=== PATIENT | male | born 1945 | race Caucasian/White ===

== ENCOUNTER 2021-09-27 12:43 | Emergency (ER) | payer MEDICARE, BC ==
--- NOTE | 2021-09-27 13:19 | EDM.PDOC ---
ED HPI GENERAL MEDICAL PROBLEM - General Chief Complaint: General Stated Complaint: MEDICAL [facility] Time Seen by Provider: 09/27/21 13:05 Source of Information: Reports: Patient, EMS, RN Notes Reviewed History Limitations: Reports: No Limitations - History of Present Illness INITIAL COMMENTS - FREE TEXT/NARRATIVE: 75-year-old gentleman presents emergency department today via EMS services complaint of dizziness, he states been dizzy for a couple weeks although it has gotten worse over the last couple of days. He has had dizziness in the past but it usually resolves within a day or 2. While in route EMS services did check a blood sugar it was at 291. He states he has never had issues with blood sugar in the past. No shortness of breath no nausea vomiting no diabetic history he consumes 4 5 glasses of water per day with 3-4 soda pops per day he does admit to consuming a lot of sugar Left Knee Pain Score (Numeric/FACES): 2 - Related Data Home Meds: Home Meds metFORMIN [Glucophage] 500 mg PO BIDMEALS #60 tab 09/27/21 [Rx] Past Medical History Cardiovascular History: Reports: High Cholesterol, Hypertension Social & Family History - Tobacco Use Tobacco Use Status *Q: Current Some Day Tobacco User Years of Tobacco use: 50 Packs/Tins Daily: 0 ED ROS GENERAL - Review of Systems Review Of Systems: See Below Constitutional: Reports: No Symptoms HEENT: Reports: No Symptoms Respiratory: Reports: No Symptoms Cardiovascular: Reports: Lightheadedness GI/Abdominal: Reports: No Symptoms : Reports: No Symptoms Neurological: Reports: Dizziness ED EXAM, GENERAL - Physical Exam Exam: See Below Exam Limited By: No Limitations General Appearance: Alert, WD/WN, No Apparent Distress Respiratory/Chest: No Respiratory Distress, Lungs Clear, Normal Breath Sounds, No Accessory Muscle Use, Chest Non-Tender Cardiovascular: Regular Rate, Rhythm, No Murmur GI/Abdominal: Soft, Non-Tender Extremities: No Pedal Edema Course - Vital Signs Last Recorded V/S: Last Vital Signs Temp 97.6 F 09/27/21 13:12 Pulse 84 09/27/21 14:05 Resp 13 09/27/21 14:05 BP 131/77 09/27/21 14:05 Pulse Ox 93 L 09/27/21 13:16 - Orders/Labs/Meds Labs: Laboratory Tests 09/27/21 09/27/21 09/27/21 Range/Units 13:25 13:25 13:25 WBC 9.7 (4.5-11.0) K/uL RBC 5.20 (4.30-5.90) M/uL Hgb 15.5 H (12.0-15.0) g/dL Hct 44.3 (40.0-54.0) % MCV 85 (80-98) fL MCH 30 (27-31) pg MCHC 35 (32-36) % Plt Count 266 (150-400) K/uL Neut % (Auto) 71.5 H (36-66) % Lymph % (Auto) 17.1 L (24-44) % Morris % (Auto) 10.2 H (2-6) % Eos % (Auto) 0.7 L (2-4) % Baso % (Auto) 0.5 (0-1) % Sodium 138 L (140-148) mmol/L Potassium 3.8 (3.6-5.2) mmol/L Chloride 101 (100-108) mmol/L Carbon Dioxide 28 (21-32) mmol/L Anion Gap 12.8 (5.0-14.0) mmol/L BUN 14 (7-18) mg/dL Creatinine 1.0 (0.8-1.3) mg/dL Est Cr Clr Drug Dosing 56.71 mL/min Estimated GFR (MDRD) > 60 (>60) Glucose 261 H (74-106) mg/dL Hemoglobin A1c 10.0 H (4.5-6.2) % Calcium 9.3 (8.5-10.1) mg/dL Total Bilirubin 0.7 (0.2-1.0) mg/dL AST 34 (15-37) U/L ALT 50 (12-78) U/L Alkaline Phosphatase 105 (46-116) U/L Total Protein 6.3 L (6.4-8.2) g/dL Albumin 3.1 L (3.4-5.0) g/dL Globulin 3.2 (2.3-3.5) g/dL Albumin/Globulin Ratio 1.0 L (1.2-2.2) Urine Color (YELLOW) Urine Appearance (CLEAR) Urine pH (5.0-8.0) Ur Specific [place] (1.008-1.030) Urine Protein (NEGATIVE) mg/dL Urine Glucose (UA) (NEGATIVE) mg/dL Urine Ketones (NEGATIVE) mg/dL Urine Occult Blood (NEGATIVE) Urine Nitrite (NEGATIVE) Urine Bilirubin (NEGATIVE) Urine Urobilinogen (0.2-1.0) EU/dL Ur Leukocyte Esterase (NEGATIVE) Urine RBC (0-5) Urine WBC (0-5) Ur Epithelial Cells Amorphous Sediment Urine Bacteria Urine Mucus 09/27/21 Range/Units 13:26 WBC (4.5-11.0) K/uL RBC (4.30-5.90) M/uL Hgb (12.0-15.0) g/dL Hct (40.0-54.0) % MCV (80-98) fL MCH (27-31) pg MCHC (32-36) % Plt Count (150-400) K/uL Neut % (Auto) (36-66) % Lymph % (Auto) (24-44) % Morris % (Auto) (2-6) % Eos % (Auto) (2-4) % Baso % (Auto) (0-1) % Sodium (140-148) mmol/L Potassium (3.6-5.2) mmol/L Chloride (100-108) mmol/L Carbon Dioxide (21-32) mmol/L Anion Gap (5.0-14.0) mmol/L BUN (7-18) mg/dL Creatinine (0.8-1.3) mg/dL Est Cr Clr Drug Dosing mL/min Estimated GFR (MDRD) (>60) Glucose (74-106) mg/dL Hemoglobin A1c (4.5-6.2) % Calcium (8.5-10.1) mg/dL Total Bilirubin (0.2-1.0) mg/dL AST (15-37) U/L ALT (12-78) U/L Alkaline Phosphatase (46-116) U/L Total Protein (6.4-8.2) g/dL Albumin (3.4-5.0) g/dL Globulin (2.3-3.5) g/dL Albumin/Globulin Ratio (1.2-2.2) Urine Color Yellow (YELLOW) Urine Appearance Clear (CLEAR) Urine pH 5.5 (5.0-8.0) Ur Specific [place] 1.025 (1.008-1.030) Urine Protein Negative (NEGATIVE) mg/dL Urine Glucose (UA) 500 H (NEGATIVE) mg/dL Urine Ketones Negative (NEGATIVE) mg/dL Urine Occult Blood Negative (NEGATIVE) Urine Nitrite Negative (NEGATIVE) Urine Bilirubin Negative (NEGATIVE) Urine Urobilinogen 0.2 (0.2-1.0) EU/dL Ur Leukocyte Esterase Negative (NEGATIVE) Urine RBC 0-5 (0-5) Urine WBC 0-5 (0-5) Ur Epithelial Cells Not seen Amorphous Sediment Not seen Urine Bacteria Few Urine Mucus Not seen Meds: Medications Discontinued Medications Generic Name Dose Route Start Last Admin Trade Name Freq PRN Reason Stop Dose Admin Metformin HCl 500 mg 09/27/21 14:23 Metformin 500 Mg Tab PO 09/27/21 14:24 ONETIME ONE Departure - Departure Time of Disposition: 14:27 Disposition: Home, Self-Care 01 Condition: Fair Clinical Impression: Diabetes mellitus type 2 in obese - Discharge Information Prescriptions: metFORMIN [Glucophage] 500 mg PO BIDMEALS #60 tab Instructions: Type 2 Diabetes Mellitus, Diagnosis, Adult, [id number] Referrals: PCP,None [Primary Care Provider] - Forms: ED Department Discharge Additional Instructions: Start your Metformin 1 tablet twice a day please follow-up with your primary care in the next 3 to 5 days for reevaluation, call return to the emergency de partment worsening of symptoms Sepsis Event Note (ED) - Evaluation Sepsis Screening Result: No Definite Risk - Focused Exam Vital Signs: Vital Signs Temp Pulse Resp BP Pulse Ox 09/27/21 14:05 84 13 131/77 09/27/21 13:16 87 15 150/82 H 93 L 09/27/21 13:12 97.6 F 88 18 152/89 H 95 - Assessment/Plan Plan: Assessment Acuity = acute Site and laterality = diabetes mellitus type 2 Etiology = unknown Manifestations = dizziness prior related to elevated blood sugars Location of injury = Home Lab values = CBC unremarkable, blood sugar 261 consistent with hyperglycemia hemoglobin A1c at 10.0, urinalysis 500 of glucose consistent with glucosuria Plan I did review lab work with him started Metformin in the emergency department prescription written for Metformin 500 mg 1 tab p.o. twice daily total #16 he is to follow-up with his primary care in the next 3 to 5 days for reevaluation medications faxed to [email or web address] [email or web address] This note was dictated using [employer] voice recognition software please call with any questions on syntax or grammar.
[2021-09-27] MEDS ORDERED: metFORMIN 500 MG Tab PO ONE (14:23)
== END 2021-09-27 15:59 | disposition home or self-care (01) ==
LOC: JP.ED 12:43
DX: E11.9 Type 2 diabetes mellitus without complications (principal); F17.210 Nicotine dependence, cigarettes, uncomplicated
CPT/HCPCS: 36415; 80053; 81001; 83036; 85025; 99284; A9270

== ENCOUNTER 2024-04-25 13:10 | Inpatient (IN) | payer MEDICARE, BC ==
[2024-04-25] MEDS ORDERED: Ondansetron 4 MG/2 ML SDV IV PRN (13:15)
[2024-04-25] MEDS ORDERED: Magnesium Hydroxide 400 MG/5 ML Susp 30 ML Cup PO PRN (13:15)
[2024-04-25] MEDS ORDERED: LORazepam 2 MG/ML SDV IVPUSH PRN (13:15)
[2024-04-25] MEDS ORDERED: Sennosides/Docusate Sodium 50-8.6 MG Tab PO PRN (13:15)
[2024-04-25] MEDS ORDERED: 50% Dextrose in Water 50 ML Syringe IVPUSH PRN (15:17)
[2024-04-25] MEDS ORDERED: Glucagon,Human Recombinant 1 MG Vial IM PRN (15:17)
[2024-04-25] MEDS ORDERED: Venlafaxine 75 MG Cap.ER PO SCH (16:30)
[2024-04-25] MEDS: Insulin Lispro 100 Unit/ML 3 ML KwikPen SUBCUT SCH (19:05)
[2024-04-25] MEDS: predniSONE 5 MG Tab PO SCH (19:06)
[2024-04-25] MEDS: Acetaminophen 325 MG Tab PO SCH (20:23)
[2024-04-25] MEDS: Melatonin 3 MG Tab PO SCH (20:23)
[2024-04-25] MEDS: atorvaSTATin 20 MG Tab PO SCH (20:23)
[2024-04-25] MEDS ORDERED: Non-Formulary Medication 1 Each (Atorvastatin [Lipitor] 40 MG Tablet) PO SCH (21:00)
[2024-04-26 05:15] LABS: HEMOGLOBIN 8.2 g/dL (12.9-16.9); MEAN CORPUSCULAR HEMOGLOBIN 30.9 pg (31.6-35.5); MEAN CORPUSCULAR HGB CONC 34.2 g/dL (31.6-35.5); MEAN CORPUSCULAR VOLUME 90.6 fL (81.4-99.0); RED BLOOD CELL COUNT 2.65 M/uL (4.14-5.76); WHITE BLOOD CELL COUNT,WBC 4.6 K/uL (3.2-11.0)
[2024-04-26 05:33] LABS: A/G RATIO 0.9 (1.2-2.2); ALANINE AMINOTRANSFERASE,ALT 14 U/L (12-78); ALBUMIN 2.6 g/dL (3.4-5.0); ALKALINE PHOSPHATASE 109 U/L (46-116); ASPARTATE AMNIOTRANSFERASE,AST 77 U/L (15-37); BILIRUBIN TOTAL 0.7 mg/dL (0.2-1.0); BLOOD UREA NITROGEN,BUN 14 mg/dL (7-18); CARBON DIOXIDE,CO2 27 mmol/L (21-32); CHLORIDE,CL 101 mmol/L (100-108); CREATININE 0.9 mg/dL (0.8-1.3); ESTIMATED GFR 87 mL/min (>60); GLUCOSE RANDOM 137 mg/dL (74-106); PROTEIN TOTAL,TP 5.5 g/dL (6.4-8.2); SODIUM,NA 138 mmol/L (140-148)
[2024-04-26 07:14] LABS: HEMOGLOBIN A1C 5.9 % (4.5-6.2)
[2024-04-26] MEDS: Pantoprazole 40 MG Tab.CR PO SCH (08:26)
[2024-04-26] MEDS: Aspirin 81 MG Tab.Chew PO SCH (08:27)
[2024-04-26] MEDS: Polyethylene Glycol 3350 Powder 17 GM Packet PO SCH (08:28)
[2024-04-26] MEDS: Venlafaxine 75 MG Cap.ER PO SCH (08:28)
[2024-04-26] MEDS: amLODIPine 5 MG Tab PO SCH (08:29)
[2024-04-26] MEDS: Sennosides 8.6 MG Tab PO SCH (08:30)
[2024-04-26] MEDS: Cholecalciferol (Vitamin D3) 25 MCG Tab PO SCH (08:32)
[2024-04-26] MEDS: ABIRATERONE ACETATE 250 MG PO SCH (08:41)
[2024-04-26] MEDS ORDERED: AMLODIPINE BESYLATE 2.5 MG PO SCH (09:00)
[2024-04-26] MEDS ORDERED: Non-Formulary Medication 1 Each (Cholecalciferol (Vitamin D3) [Vitamin D3] 125 MCG Capsule PO SCH (09:00)
[2024-04-26] MEDS ORDERED: Non-Formulary Medication 1 Each (Sennosides [Senokot] 8.6 MG Tablet) PO SCH (09:00)
[2024-04-26] MEDS ORDERED: Non-Formulary Medication 1 Each (Venlafaxine [Effexor Xr] 150 MG Cap.Er) PO SCH (09:00)
[2024-04-28] MEDS: oxyCODONE 5 MG Tab PO PRN (09:56)
[2024-04-28] MEDS: oxyCODONE 5 MG Tab PO SCH (16:14)
[2024-04-29] MEDS: Diclofenac Sodium 1% Gel 100 GM Tube TOP SCH (16:33)
[2024-05-01] MEDS: Acetaminophen 325 MG Tab PO PRN (05:58)
[2024-05-05] MEDS: Ondansetron 4 MG Tab.DIS PO PRN (08:08)
[2024-05-05] MEDS ORDERED: oxyCODONE 5 MG Tab PO PRN (11:43)
[2024-05-05 12:23] LABS: HEMATOCRIT 23.2 % (38.4-49.7); HEMOGLOBIN 8.1 g/dL (12.9-16.9); MEAN CORPUSCULAR HGB CONC 34.9 g/dL (31.6-35.5); MEAN CORPUSCULAR VOLUME 91.7 fL (81.4-99.0); PLATELET COUNT,PLT 69 K/uL (130-375); RED BLOOD CELL COUNT 2.53 M/uL (4.14-5.76); WHITE BLOOD CELL COUNT,WBC 4.9 K/uL (3.2-11.0)
[2024-05-05 12:49] LABS: C-REACTIVE PROTEIN 4.91 mg/dL (<0.50); EST CRCL DRUG DOSING (CG) 50.49 mL/min; POTASSIUM,K 4.3 mmol/L (3.6-5.2)
[2024-05-05 12:50] LABS: ANION GAP 14.3 mmol/L (5.0-14.0)
[2024-05-05 13:05] LABS: BAND PERCENT MAN 2 % (5-11); EOSINOPHILS ABSOLUTE MAN 0.05 K/uL (0.00-0.40); EOSINOPHILS PERCENT MAN 1 % (2-4); LYMPHOCYTES ABSOLUTE MAN 1.18 K/uL (0.8-3.3); LYMPHOCYTES PERCENT MAN 24 % (24-44); MONOCYTES ABSOLUTE MAN 0.25 K/uL (0.20-0.90); MONOCYTES PERCENT MAN 5 % (2-6); NEUTROPHILS ABSOLUTE MAN 3.33 K/uL (1.0-7.6); SEG NEUTROPHILS PERCENT MAN 68 % (36-66)
[2024-05-05 15:51] LABS: APPEARANCE,URINE TURBID (CLEAR); BILIRUBIN,URINE NEGATIVE (NEGATIVE); COLOR,URINE YELLOW (YELLOW); GLUCOSE,URINE NEGATIVE (NEGATIVE); KETONES,URINE NEGATIVE (NEGATIVE); LEUKOCYTE ESTERASE,URINE NEGATIVE (NEGATIVE); NITRITE,URINE NEGATIVE (NEGATIVE); OCCULT BLOOD,URINE NEGATIVE (NEGATIVE); PH,URINE 5.5 (5.0-8.0); PROTEIN,URINE NEGATIVE (NEGATIVE)
[2024-05-05 15:58] LABS: RBC,URINE 0-5 (0-5)
[2024-05-05 16:01] LABS: AMORPHOUS SEDIMENT,URINE NOT SEEN; BACTERIA,URINE MANY; EPITHELIAL CELLS,URINE NOT SEEN; MUCUS,URINE NOT SEEN; WBC,URINE 0-5 (0-5)
[2024-05-05] MEDS: cefTRIAXone 2 GM in Sodium Chloride 0.9% 50 ML IV SCH (19:25)
== END 2024-05-06 10:46 | disposition home or self-care (01) | DRG 948 ==
LOC: JP.MS 13:10 → UNDOADMIN 13:10
PROVIDERS: ADMIT Hospitalist; ATTEND Internal Medicine
DX: R53.1 Weakness (principal); I10 Essential (primary) hypertension; F32.A Depression, unspecified; Z66 Do not resuscitate; E86.0 Dehydration; E78.00 Pure hypercholesterolemia, unspecified; K21.9 Gastro-esophageal reflux disease without esophagitis; R62.7 Adult failure to thrive; R41.0 Disorientation, unspecified; R53.81 Other malaise; Z85.46 Personal history of malignant neoplasm of prostate; Z86.73 Personal history of transient ischemic attack (TIA), and cerebral infarction without residual deficits; Z79.84 Long term (current) use of oral hypoglycemic drugs; Z79.82 Long term (current) use of aspirin; Z79.899 Other long term (current) drug therapy; Z87.891 Personal history of nicotine dependence
CPT/HCPCS: 36415; 80048; 80053; 81001; 83036; 84145; 85025; 85027; 86140; 87086; 97110-GP; 97116-GP; 97161-GP; 97166-GO; 97530-GO; 97530-GP; 97535-GO; 99305; 99308; 99315; A9270-GY; J0696; J3490; J7512; Q0162

== ENCOUNTER 2024-05-06 10:49 | Inpatient (IN) | payer MEDICARE, BC ==
[2024-05-06] MEDS ORDERED: Magnesium Hydroxide 400 MG/5 ML Susp 30 ML Cup PO PRN (11:17)
[2024-05-06] MEDS ORDERED: Albuterol 0.083% 2.5 MG/3 ML Neb Soln NEB PRN (11:17)
[2024-05-06] MEDS ORDERED: Sennosides/Docusate Sodium 50-8.6 MG Tab PO PRN (11:17)
[2024-05-06] MEDS ORDERED: Ondansetron 4 MG/2 ML SDV IV PRN (11:17)
[2024-05-06] MEDS ORDERED: Ondansetron 4 MG Tab.DIS PO PRN (11:17)
[2024-05-06] MEDS: Sodium Chloride 0.9% 500 ML IV ONE (12:18)
[2024-05-06] MEDS: Sodium Chloride 0.9% 1,000 ML IV SCH (12:57)
[2024-05-06] MEDS: cefTRIAXone 2 GM in Sodium Chloride 0.9% 50 ML IV SCH (14:55)
[2024-05-06] MEDS: Ketorolac 30 MG/ML SDV IVPUSH ONE (15:38)
[2024-05-06] MEDS: Dextrose 5%-Lactated Ringers 1,000 ML IV ONE (19:56)
[2024-05-06 20:19] LABS: MEAN CORPUSCULAR HEMOGLOBIN 31.6 pg (31.6-35.5); PLATELET COUNT,PLT 51 K/uL (130-375); RED BLOOD CELL COUNT 2.15 M/uL (4.14-5.76); WHITE BLOOD CELL COUNT,WBC 3.9 K/uL (3.2-11.0)
[2024-05-06 20:25] LABS: HEMOGLOBIN 6.8 g/dL (12.9-16.9)
[2024-05-06 20:28] LABS: BASE EXCESS ARTERIAL 4.6 mm/L; BICARBONATE,ARTERIAL 28.2 mmol/L (22.0-26.0); CARBOXYHEMOGLOBIN 4.2 % (0.0-1.6); METHEMOGLOBIN 0.9 %; OXYHEMOGLOBIN 94.8 %; PCO2 ARTERIAL 38.7 mmHg (35.0-42.0); TOTAL HEMOGLOBIN 7.1 g/dL (13.5-18.0)
[2024-05-06 20:32] LABS: O2 SATURATION ARTERIAL > 99.3 % (95.0-98.0)
[2024-05-06 20:45] LABS: ALANINE AMINOTRANSFERASE,ALT 5 U/L (12-78); ALBUMIN 2.6 g/dL (3.4-5.0); ALKALINE PHOSPHATASE 113 U/L (46-116); ANION GAP 8.5 mmol/L (5.0-14.0); ASPARTATE AMNIOTRANSFERASE,AST 90 U/L (15-37); BILIRUBIN TOTAL 0.6 mg/dL (0.2-1.0); BLOOD UREA NITROGEN,BUN 16 mg/dL (7-18); CARBON DIOXIDE,CO2 29 mmol/L (21-32); CHLORIDE,CL 104 mmol/L (100-108); CREATININE 0.8 mg/dL (0.8-1.3); EST CRCL DRUG DOSING (CG) 63.12 mL/min; ESTIMATED GFR 90 mL/min (>60); GLUCOSE RANDOM 117 mg/dL (74-106); POTASSIUM,K 3.9 mmol/L (3.6-5.2); PROTEIN TOTAL,TP 5.1 g/dL (6.4-8.2); SODIUM,NA 141 mmol/L (140-148)
[2024-05-06 20:47] LABS: BAND ABSOLUTE MAN 0.39 K/uL; BAND PERCENT MAN 10 % (5-11); HYPOCHROMASIA MODERATE; LYMPHOCYTES ABSOLUTE MAN 0.78 K/uL (0.8-3.3); LYMPHOCYTES PERCENT MAN 20 % (24-44); MONOCYTES ABSOLUTE MAN 0.35 K/uL (0.20-0.90); MONOCYTES PERCENT MAN 9 % (2-6); NEUTROPHILS ABSOLUTE MAN 2.38 K/uL (1.0-7.6); SEG NEUTROPHILS PERCENT MAN 61 % (36-66)
[2024-05-06 20:48] LABS: ANISOCYTOSIS FEW; POIKILOCYTOSIS FEW
[2024-05-06 20:55] LABS: MAGNESIUM 2.2 mg/dL (1.8-2.4); TSH ULTRASENSITIVE 1.386 uIU/mL (0.358-3.740)
[2024-05-06] MEDS: Pantoprazole 40 MG Vial IVPUSH ONE (20:58)
[2024-05-06 21:04] LABS: CORONAVIRUS COVID-19 NAA NEGATIVE (NEGATIVE); INFLUENZA A NAA NEGATIVE (NEGATIVE); INFLUENZA B NAA NEGATIVE (NEGATIVE); RESPIRATORY SYNCYTIAL VIR NAA NEGATIVE (NEGATIVE)
[2024-05-07] MEDS: Furosemide 20 MG/2 ML VIAL IVPUSH ONE ×2 (00:13→03:36)
[2024-05-07 03:21] LABS: HEMATOCRIT 27.4 % (38.4-49.7); HEMOGLOBIN 9.5 g/dL (12.9-16.9); MEAN CORPUSCULAR HEMOGLOBIN 30.4 pg (31.6-35.5); MEAN CORPUSCULAR HGB CONC 34.7 g/dL (31.6-35.5); MEAN CORPUSCULAR VOLUME 87.5 fL (81.4-99.0); RED BLOOD CELL COUNT 3.13 M/uL (4.14-5.76); WHITE BLOOD CELL COUNT,WBC 4.2 K/uL (3.2-11.0)
[2024-05-07] MEDS: Acetaminophen 325 MG Tab PO PRN (03:26)
[2024-05-07 03:44] LABS: ALANINE AMINOTRANSFERASE,ALT 12 U/L (12-78); ALBUMIN 2.9 g/dL (3.4-5.0); ALKALINE PHOSPHATASE 127 U/L (46-116); ASPARTATE AMNIOTRANSFERASE,AST 107 U/L (15-37); BILIRUBIN TOTAL 0.9 mg/dL (0.2-1.0); BLOOD UREA NITROGEN,BUN 14 mg/dL (7-18); CALCIUM 8.2 mg/dL (8.5-10.1); CARBON DIOXIDE,CO2 27 mmol/L (21-32); CHLORIDE,CL 104 mmol/L (100-108); CREATININE 0.9 mg/dL (0.8-1.3); ESTIMATED GFR 87 mL/min (>60); GLUCOSE RANDOM 130 mg/dL (74-106); POTASSIUM,K 3.4 mmol/L (3.6-5.2); PROTEIN TOTAL,TP 5.8 g/dL (6.4-8.2); SODIUM,NA 142 mmol/L (140-148)
[2024-05-07 03:45] LABS: ANION GAP 14.4 mmol/L (5.0-14.0)
[2024-05-07] MEDS: Potassium Chloride 10 MEQ in Premix Bag 2 BAG IV ONE (04:39)
[2024-05-07] MEDS: Bisacodyl 10 MG Supp RECTAL ONE (05:07)
[2024-05-07] MEDS: Potassium Chloride 10 MEQ in Premix Bag 1 BAG IV SCH (05:15)
[2024-05-07] MEDS: Aspirin 81 MG Tab.Chew PO ONE (05:51)
[2024-05-07] MEDS: amLODIPine 5 MG Tab PO ONE (05:51)
[2024-05-07] MEDS: Metoprolol Tartrate 25 MG Tab PO ONE (05:52)
[2024-05-07] MEDS: Cefepime 2 GM in Sodium Chloride 0.9% 50 ML IV SCH (07:39)
[2024-05-07] MEDS ORDERED: Pantoprazole 40 MG Vial IVPUSH SCH (09:10)
[2024-05-07] MEDS: Pantoprazole 40 MG Vial IVPUSH SCH (09:33)
[2024-05-07] MEDS: Ketorolac 15 MG/ML SDV IVPUSH PRN (11:25)
[2024-05-08 05:28] LABS: HEMATOCRIT 26.5 % (38.4-49.7); HEMOGLOBIN 9.3 g/dL (12.9-16.9); MEAN CORPUSCULAR HEMOGLOBIN 30.7 pg (31.6-35.5); MEAN CORPUSCULAR HGB CONC 35.1 g/dL (31.6-35.5); MEAN CORPUSCULAR VOLUME 87.5 fL (81.4-99.0); RED BLOOD CELL COUNT 3.03 M/uL (4.14-5.76); WHITE BLOOD CELL COUNT,WBC 4.4 K/uL (3.2-11.0)
[2024-05-08 06:19] LABS: ANION GAP 13.6 mmol/L (5.0-14.0); BLOOD UREA NITROGEN,BUN 24 mg/dL (7-18); CALCIUM 8.1 mg/dL (8.5-10.1); CARBON DIOXIDE,CO2 21 mmol/L (21-32); CHLORIDE,CL 106 mmol/L (100-108); CREATININE 2.2 mg/dL (0.8-1.3); EST CRCL DRUG DOSING (CG) 22.95 mL/min; ESTIMATED GFR 30 mL/min (>60); GLUCOSE RANDOM 111 mg/dL (74-106); POTASSIUM,K 4.1 mmol/L (3.6-5.2); SODIUM,NA 141 mmol/L (140-148); VANCOMYCIN RANDOM 26.8 ug/mL (0.0-50.0)
[2024-05-08 06:20] LABS: PSA DIAGNOSTIC > 100.0 ug/L (0.0-4.0)
[2024-05-08] MEDS: Iopamidol 612 MG/ML 100 ML Bottle IV SCH (06:46)
[2024-05-08] MEDS: Sodium Chloride 0.9% 10 ML Syringe FLUSH ONE (06:46)
[2024-05-08] MEDS: Sodium Chloride 0.9% 100 ML IV SCH (06:46)
[2024-05-08] MEDS: Aspirin 81 MG Tab.Chew PO SCH (09:03)
[2024-05-08] MEDS: amLODIPine 5 MG Tab PO SCH (09:03)
[2024-05-08] MEDS: Cefepime 1 GM in Sodium Chloride 0.9% 50 ML IV SCH (20:18)
[2024-05-09] MEDS ORDERED: Sodium Chloride 0.9% 1,000 ML IV SCH (09:00)
[2024-05-09] MEDS: oxyCODONE 5 MG Tab PO PRN (19:50)
[2024-05-10] MEDS: Ciprofloxacin 500 MG Tab PO SCH (09:45)
[2024-05-12] MEDS: diphenhydrAMINE 25 MG Cap PO PRN (21:12)
== END 2024-05-13 10:00 | disposition hospice, home (50) | DRG 690 ==
LOC: JP.MS 10:49
PROVIDERS: ADMIT Internal Medicine; ATTEND Internal Medicine
DX: N39.0 Urinary tract infection, site not specified (principal); C79.51 Secondary malignant neoplasm of bone; F05 Delirium due to known physiological condition; E11.9 Type 2 diabetes mellitus without complications; Z51.5 Encounter for palliative care; F32.A Depression, unspecified; I10 Essential (primary) hypertension; E78.00 Pure hypercholesterolemia, unspecified; G47.30 Sleep apnea, unspecified; K21.9 Gastro-esophageal reflux disease without esophagitis; C61 Malignant neoplasm of prostate; R62.7 Adult failure to thrive; R33.9 Retention of urine, unspecified; M19.90 Unspecified osteoarthritis, unspecified site; E87.6 Hypokalemia; R09.02 Hypoxemia; Z86.73 Personal history of transient ischemic attack (TIA), and cerebral infarction without residual deficits; Z96.651 Presence of right artificial knee joint; Z79.82 Long term (current) use of aspirin; Z79.899 Other long term (current) drug therapy
CPT/HCPCS: 0241U; 36415; 36430; 36600; 51702; 70450; 71045; 74177; 80048; 80053; 80202; 82140; 82150; 82550; 82803; 83605; 83615; 83735; 83880; 84132; 84153; 84443; 84484; 85018; 85025; 85027; 86850; 86900; 86901; 86920; 86922; 87040; 93005; 93010; 99223; 99233; 99238; A9270-GY; J0692; J0696; J1885; J1940; J2470; J3370; J3480; J3490; J7030; J7050; J7121; P9016; Q9967